=== PATIENT | male | born 1955 | race Caucasian/White ===

== ENCOUNTER 2022-03-06 11:24 | Outpatient (CLI) | payer MEDICARE, OTHER ==
[2022-03-06 12:04] LABS: ALT (SGPT) 19 U/L (8-55); AST (SGOT) 16 U/L (5-34); Albumin 4.3 g/dL (3.4-4.8); Alkaline Phosphatase 61 U/L (40-110); Anion Gap 13 mmol/L (10-20); BUN (Urea Nitrogen) 20 mg/dL (8.4-25.7); Bilirubin, Total 0.7 mg/dL (0.2-1.2); Calc. Creatinine Clearance 0 mL/min (70-130); Calcium 9.6 mg/dL (7.8-10.44); Carbon Dioxide 26 mmol/L (23-31); Cardiac Risk 3.6 (Less than 4.5); Chloride 109 mmol/L (98-107); Cholesterol 127 mg/dl (< 200 Desired); Estimated GFR 66; Globulin 2.1 g/dL (2.4-3.5); Glucose 110 mg/dL (80-115); HDL Cholesterol 35 mg/dL (>60 Neg Risk); LDL Cholesterol, Calculated 74 mg/dL; Potassium 5.3 mmol/L (3.5-5.1); Protein, Total 6.4 g/dL (5.8-8.1); Sodium 143 mmol/L (136-145); Triglycerides 88 mg/dL (Less than 150)
== END 2022-03-06 11:25 | disposition home or self-care (01) ==
LOC: MADLABBHPM 11:24 → MADLAB 11:25
PROVIDERS: ATTEND Family Medicine
DX: I10 Essential (primary) hypertension (principal); E78.00 Pure hypercholesterolemia, unspecified
CPT/HCPCS: 80053; 80061

== ENCOUNTER 2024-07-28 13:50 | Outpatient (CLI) | payer MEDICARE, OTHER | END 2024-07-28 13:51 | disposition home or self-care (01) | LOC: MADCT 13:50 | PROVIDERS: ATTEND Orthopaedic Surgery | DX: M54.16 Radiculopathy, lumbar region (principal); M46.1 Sacroiliitis, not elsewhere classified; M54.50 Low back pain, unspecified; R10.2 Pelvic and perineal pain; M16.11 Unilateral primary osteoarthritis, right hip; M48.061 Spinal stenosis, lumbar region without neurogenic claudication; M48.07 Spinal stenosis, lumbosacral region; Z98.1 Arthrodesis status | CPT/HCPCS: 72131; 72192 ==